=== PATIENT | female | born 1975 ===

== ENCOUNTER 2018-06-11 09:14 | Outpatient (CLI) | payer OTHER ==
--- NOTE | 2018-06-11 11:16 | ULT ---
ULTRASOUND PELVIS DOPPLER DUPLEX: 06/11/2018 HISTORY: Confirm IUD placement. N88.9, abnormal cervix. A 42-year-old female. TECHNIQUE: Parikh-scale, color-flow, and spectral analysis images of the intrapelvic contents using a transabdomin al transducer. FINDINGS: The uterus measures 8 x 4 x 4 cm. Portions of linear echogenic structure visualized within the endometrial cavity, in the body and fund us of the uterus, corresponding to the IUD mentioned in the history. Incidentally, there is a 1 x 0.7 x 0.7 cm, anechoic, focal lesion in the left uterine body, apparentl y a small cyst. No large uterine fibroid identified. Blood flow demonstrated in the bilateral ovaries by Doppler. No ovarian cyst greater than 2 cm ident ified. Right ovary: 2.8 x 1.2 x 2.1 cm. Left ovary: 3.2 x 2.0 x 2.4 cm. No free fluid in the cul-de-sac. IMPRESSION: Intrauterine device within the endometrial cavity. POS: [facility]
== END 2018-06-11 09:15 | disposition home or self-care (01) ==
LOC: BICMAMMO 09:14
PROVIDERS: ATTEND Family Medicine
DX: Z12.31 Encounter for screening mammogram for malignant neoplasm of breast (principal); N88.9 Noninflammatory disorder of cervix uteri, unspecified; Z97.5 Presence of (intrauterine) contraceptive device
CPT/HCPCS: 76856; 77063; 77067; 93976